=== PATIENT | male | born 1970 | race Caucasian/White ===

== ENCOUNTER 2016-10-20 08:25 | Emergency (ER) | payer MEDICAID ==
[~2016-10-20] VITALS: Wt 157.0 kg
[~2016-10-20 08:25] MED LIST: CEPH500C PO; IBUP800T25 PO; SULF-182 PO
[2016-10-20] MEDS ORDERED: NAPROXEN 500 MG TAB PO ONE (09:30)
--- NOTE | 2016-10-20 09:49 | RADRPT ---
PROCEDURE: Left foot series. CLINICAL INDICATION: Left foot pain TECHNIQUE: Three views of the left foot are available for review. COMPARISON: None available FINDINGS: There is normal mineralization and alignment of the bones of the left foot. Lisfranc's joint appear s intact. There is no evidence of acute fracture or dislocation. Joint spaces are well maintained. No osteophytes or erosions are seen. There is apparent mild diffuse soft tissue swelling. Incide ntal note is made of a small plantar heel spur . IMPRESSION: 1. Diffuse soft tissue swelling without evidence of underlying fracture or dislocation. 2. Small plantar heel spur. RPTAT: KK .Nicolás Kelly MD, MD Date Time Electronically viewed and signed by .Nicolás Kelly MD, on 10/20/2016 09:49 .B/
[2016-10-20] MEDS ORDERED: NAPR-260 PO (09:55)
--- NOTE | 2016-10-20 09:59 | ERD ---
ER Documentation Chief Complaint Date/Time DATE: 10/20/16 TIME: 09:57 Chief Complaint non traumatic left footpain and swelling for 2 mos HPI This is a 46-year-old male presenting to the emergency department complaining of left foot pain and swelling for the past 2 months. Patient locates the swelling and pain in the lateral aspect of the left foot and the dorsal aspect. Patient states the swelling and tenderness comes and goes for the past 2 months. He states the pain is around moderate in severity. He denies any trauma. Denies any fevers. Denies any medical problems. Denies any shortness of breath or chest pain ROS All systems reviewed and are negative except as per history of present illness. Medications Home Meds Active Scripts Naproxen* (Naprosyn*) 500 Mg Tablet, 500 MG PO BID Y for PAIN AND/OR INFLAMMATION, #30 TAB Prov:MAGDIEL GUIDRY PA-C 10/20/16 Ibuprofen* (Ibuprofen*) 800 Mg Tablet, 800 MG PO Q8 Y for PAIN AND OR ELEVATED TEMP, #30 TAB Prov:MENDEL MA. MANAGER MEDICAL DEVICE 02/12/15 Cephalexin* (Cephalexin*) 500 Mg Capsule, 500 MG PO BID for 7 Days, CAP Prov:MENDEL MA. MANAGER MEDICAL DEVICE 02/12/15 Sulfamethoxazole-Trimethoprim* (Sulfamethoxazole-Trimethoprim* DS) 800-160 Mg Tablet, 1 TAB PO BID for 7 Days, TAB Prov:MENDEL MA. MANAGER MEDICAL DEVICE 02/12/15 Allergies Allergies: Coded Allergies: No Known Allergy (Unverified , 02/12/15) PMhx/Soc Medical and Surgical Hx: pt denies Medical Hx, pt denies Surgical Hx History of Surgery: No Anesthesia Reaction: No Hx Neurological Disorder: No Hx Respiratory Disorders: No Hx Cardiac Disorders: No Hx Psychiatric Problems: No Hx Miscellaneous Medical Probl: No Hx Alcohol Use: No Hx Substance Use: No Hx Tobacco Use: No Smoking Status: Never smoker Physical Exam Vitals Vital Signs Date Time Temp Pulse Resp B/P Pulse Ox O2 Delivery O2 Flow Rate FiO2 10/20/16 08:29 98.4 67 21 155/88 98 Physical Exam General: WD/WN, in no apparent distress, non-toxic appearing HENT: NC/AT Eyes: Conjunctiva normal Neck: Supple Pulm: Clear to auscultation, normal labored breathing; no wheezing/rales/ rhonchi heard CV: Good capillary refill GI: Non-distended, no guarding Back: No masses Ext: mild to moderate swelling in the left foot, tenderness to palpation the dorsal and the lateral aspect of the left foot, +2 pedal pulses bilaterally, no pitting edema Neuro: Moves on all fours Skin: intact Psych: Normal mood Results 24 hrs Current Medications Medications (Trade) Dose Ordered Sig/Jessica Route PRN Reason Start Time Stop Time Status Last Admin Dose Admin Naproxen (Naprosyn) 500 mg ONCE ONCE PO 10/20/16 09:30 10/20/16 09:31 DC 10/20/16 09:26 Procedures/MDM This is a 46-year-old male presenting to the emergency room complaining of intermittent left foot pain and swelling for the past 2 months. I will low suspicion for fracture, dislocation, cellulitis, osteomyelitis or gout due to physical examination. An x-ray of the left foot was done and it showed that there is swelling but no underlying fracture dislocation. I discussed with patient to follow-up with his primary care physician today for further advice management and possible referral to see orthopedist. Patient was placed in an Marc bandage and given crutches. He is neurovascular intact pre-and post treatment. Strict precautions were given to return to the ER for any worsening signs or symptoms. Patient understands and agrees with this plan XR left foot: 1. Diffuse soft tissue swelling without evidence of underlying fracture or dislocation. 2. Small plantar heel spur. Departure Diagnosis: Primary Impression: Foot pain Laterality: left Qualified Code: M79.672 - Left foot pain Condition: Stable Patient Instructions: R.I.C.E., Sprain Foot Referrals: NO PRIMARY,CARE PHYSICIAN (PCP) lea doctora [facility] Usted se stoner hecho un examen mdico de control que le indica que no est en tarah condicin que requiera tratamiento urgente en el Departamento de Emergencia. Un estudio ms profundo y el tratamiento de lea condicin pueden esperar sin ningn riesgo hasta que usted sea atendida/o en el consultorio de lea mdico o tarah cl [place]. Es responsabilidad suya arreglar tarah va para el seguimiento del nicol. MANEJO DE CONDICIONES NO URGENTES EN EL FUTURO 1) Si usted tiene un mdico de atencin primaria: Usted debera llamar a lea mdico de atencin primaria antes de venir al departamento de emergencia. Despus de las horas de consultorio, lea doctor o lea asociado/a est disponible por telfono. El mdico o enfermero de herb en el servicio telefnico puede asesorarle por sam medio para atender el problema, o nicol contrario se puede programar tarah va. 2) Si usted no tiene un mdico de atencin primaria: Llame al mdico o clnica de referencia que aparece abajo junior las horas de consultorio para hacer tarah va para que le vean. CLINICAS: [place] [id number] [phone] [facility] [phone] [facility] [facility] [phone] [address] [facility] [place] [id number] [phone] [place] [id number] [phone] [facility] [phone] [facility] () Usted se stoner hecho un examen mdico de control que le indica que no est en tarah condicin que requiera tratamiento urgente en el Departamento de Emergencia. Un estudio ms profundo y el tratamiento de lea condicin pueden esperar sin ningn riesgo hasta que usted sea atendida/o en el consultorio de lea mdico o tarah cl rolanda. Es responsabilidad suya arreglar tarah va para el seguimiento del nicol. MANEJO DE CONDICIONES NO URGENTES EN EL FUTURO 1) Si usted tiene un mdico de atencin primaria: Usted debera llamar a lea mdico de atencin primaria antes de venir al departamento de emergencia. Despus de las horas de consultorio, lea doctor o lea asociado/a est disponible por telfono. El mdico o enfermero de herb en el servicio telefnico puede asesorarle por sam medio para atender el problema, o nicol contrario se puede programar tarah va. 2) Si usted no tiene un mdico de atencin primaria: Llame al mdico o condado institucions de referencia que aparece abajo junior las horas de consultorio para hacer tarah va para que le vean. SI USTED NO PUEDE PAGAR PARA ALLYSSA UN MEDICO puede ir a: [facility] [address] [place] [address] [facility] [address] [place] [address] [facility] [address] [place] [address] [facility] [address] [place], [place] [phone] Additional Instructions: Visite a lea mdico maana para un EXAMEN.Regrese a estas instalaciones si no se mejora caleb esperbamos o caleb le dijimos. [place] toda la medicina jason y caleb se le indic. Regrese a estas instalaciones si no se mejora caleb esperbamos o caleb le dijimos. MAGDIEL GUIDRY PA-C Oct 20, 2016 09:59
== END 2016-10-20 10:05 | disposition home or self-care (01) ==
LOC: FTE 08:25
DX: M79.672 Pain in left foot (principal)
CPT/HCPCS: 73630; Z7502; Z7610

== ENCOUNTER 2018-07-09 19:15 | Emergency (ER) | END 2018-07-09 23:42 | disposition home or self-care (01) ==